=== PATIENT | male | born 1990 | race Caucasian/White ===

== ENCOUNTER 2019-03-22 12:41 | Emergency (ER) | payer OTHER ==
[~2019-03-22] VITALS: Ht 177.8 cm; Wt 104.3 kg
[2019-03-22] MEDS ORDERED: CEPH500 PO (14:07)
[2019-03-22] MEDS ORDERED: HYDR1TAB94 PO (14:27)
== END 2019-03-22 14:46 | disposition home or self-care (01) ==
LOC: ER 12:41
DX: L60.0 Ingrowing nail (principal); Z87.891 Personal history of nicotine dependence
CPT/HCPCS: 11765; 99283-25; A9270-GY